=== PATIENT | female | born 1965 | race Caucasian/White ===

== ENCOUNTER 2018-01-16 13:12 | Emergency (ER) | payer OTHER ==
[2018-01-16 13:28] VITALS: BMI 25.7
[2018-01-16] MEDS ORDERED: Lidocaine 1% Inj (20ml) INFIL STA (14:25)
--- NOTE | 2018-01-16 14:25 | RAD ---
PROCEDURE: Left Wrist Radiographs. HISTORY: fall COMPARISON: None. FINDINGS: BONES: Comminuted, dorsally angulated distal radial fracture with equivocal extension to the radiocarpal articulation. Minimally displaced fracture of the ulnar styloid. JOINTS: Unremarkable. SOFT TISSUES: Circumferential wrist soft tissue swelling. OTHER FINDINGS: None. IMPRESSION: Comminuted, dorsally angulated distal radial fracture with equivocal intra-articular extension. Minimally displaced ulnar styloid fracture.
[2018-01-16] MEDS ORDERED: Lidocaine Hydrochloride 5 ML INJ ONE (14:30)
[2018-01-16] MEDS ORDERED: Morphine 4 MG/ML VIAL ONE (14:31)
--- NOTE | 2018-01-16 15:08 | C.PDOC ---
History Of Present Illness 52-year-old female, presents to the emergency department with complaints of pain to left wrist. patient states she fell at home at 10:00 this morning, injuring her left wrist, prompting visit. patient states she took Tylenol at home, before arrival. She notes pain is worse with movement and palpation. Denies numbness/weakness, nausea/vomiting, or any other associated symptoms. No other complaints at this time. Time Seen by Provider: 01/16/18 13:35 Chief Complaint (Nursing): Upper Extremity Problem/Injury History Per: Patient History/Exam Limitations: no limitations Current Symptoms Are (Timing): Still Present Past Medical History Reviewed: Historical Data, Nursing Documentation, Vital Signs Vital Signs: Last Vital Signs Temp 98.6 F 01/16/18 15:21 Pulse 82 01/16/18 15:21 Resp 18 01/16/18 15:21 BP 136/78 01/16/18 15:21 Pulse Ox 99 01/16/18 18:44 - Medical History PMH: Hypercholesterolemia Family History: States: No Known Family Hx - Social History Hx Alcohol Use: No Hx Substance Use: No - Immunization History Hx Tetanus Toxoid Vaccination: No Hx Influenza Vaccination: No Hx Pneumococcal Vaccination: No Review Of Systems Constitutional: Negative for: Fever, Chills Respiratory: Negative for: Shortness of Breath Gastrointestinal: Negative for: Vomiting Musculoskeletal: Positive for: Other (left wrist pain s/p trauma) Physical Exam - Physical Exam Appears: Non-toxic, Other (mod-severe distress) Skin: Normal Color, Warm, Dry, No Rash Head: Atraumatic Eye(s): bilateral: Normal Inspection Nose: Normal Oral Mucosa: Moist Lips: Normal Appearing Neck: Normal ROM Respiratory: No Accessory Muscle Use (no acute respiratory distress) Extremity: Tenderness, Capillary Refill (<2 seconds), Deformity, Swelling (mild) , Other (Left wrist is deformed.) Pulses: Left Radial: Normal, Right Radial: Normal Neurological/Psych: Oriented x3, Normal Speech ED Course And Treatment O2 Sat by Pulse Oximetry: 99 - Other Rad XR WRIST X-Ray: Viewed By Me, Read By Radiologist Interpretation: Accession No. : [id number]. Patient Name / ID : DIA HILLS / [id number]. Exam Date : 01/16/2018 13:52:38 ( Approved ). Study Comment : Sex / Age : F / 52Y. Creator : Ty Dumont MD. Dictator : Ty Dumont MD. Split Leather Mosser : Systems Support Engineer : Ty Dumont MD. Approver2 : Report Date : 01/16/2018 14:23:28. My Comment : . PROCEDURE: Left Wrist Radiographs. . HISTORY: fall. COMPARISON: None. FINDINGS: BONES: Comminuted, dorsally angulated distal radial fracture with equivocal extension to the radiocarpal articulation. Minimally displaced fracture of the ulnar styloid. JOINTS: Unremarkable. SOFT TISSUES: Circumferential wrist soft tissue swelling. OTHER FINDINGS: None. IMPRESSION: Comminuted, dorsally angulated distal radial fracture with equivocal intra-articular extension. Minimally displaced ulnar styloid fracture. POST REDUCTION X-Ray: Viewed By Me, Read By Radiologist Interpretation: Accession No. : [id number]. Patient Name / ID : DIA HILLS / [id number]. Exam Date : 01/16/2018 14:43:36 ( Approved ). Study Comment : Sex / Age : F / 52Y. Creator : Ty Dumont MD. Dictator : Ty Dumont MD. Split Leather Mosser : Systems Support Engineer : Ty Dumont MD. Approver2 : Report Date : 01/16/2018 15:10:37. My Comment : . PROCEDURE: Left Wrist Radiographs. . HISTORY: post reduction. COMPARISON: Left wrist radiographs performed approximately 1 hour prior. FINDINGS: Distal left upper extremity cast is now present, limiting evaluation of fine bony detail. Comminuted, angulated distal radial fracture is redemonstrated with slightly improved, but persistent dorsal angulation. Ulnar styloid fracture is grossly unchanged. IMPRESSION: Findings as above. Medical Decision Making Medical Decision Making: PROCEDURE: REDUCTION Performed by Dr Ortiz (EP) and PA Consent: Informed consent, after discussion of the risks, benefits, and alternatives to the procedure, was obtained. Timeout: A timeout to verify the correct patient, procedure, and site was performed immediately prior to the procedure. Indication: dislocation Location: Left wrist Sedation:Lidocaine 1%, Morphine. Pre-procedure neurovascular status: Distal neurovascular status intact. Post-procedure neurovascular status: Distal neurovascular status remains intact. Confirmation: Post-reduction films confirm reduction. See post-procedure X-Ray interpretation. Post-procedure:Patient tolerated the procedure well with no immediate complications. The reduction site was immobilized with a sugar tongue splint that was applied by ED attending . Case was d/w Hand specialist who will see patient in her office on Saturday, January 20, 2018. Disposition - Disposition Referrals: Danya Munson MD [Staff Provider] - Disposition: HOME/ ROUTINE Disposition Time: 15:02 Condition: STABLE Additional Instructions: Follow up with hand/wrist specialist on Saturday, January 20, 2018. For appointment time call 's office today. Return to ED immediately if feel worse. Prescriptions: oxyCODONE/Acetaminophen [Percocet 5/325 mg Tab] 1 tab PO QID PRN #20 tab PRN Reason: Pain Instructions: Wrist Fracture (DC) Forms: [facility] ([place]) - Clinical Impression Clinical Impression: Wrist fracture - Scribe Statement The provider has reviewed the documentation as recorded by the Scribe (Graham Yates) All medical record entries made by the Scribe were at my direction and personally dictated by me. I have reviewed the chart and agree that the record accurately reflects my personal performance of the history, physical exam, medical decision making, and the department course for this patient. I have also personally directed, reviewed, and agree with the discharge instructions and disposition.
--- NOTE | 2018-01-16 15:12 | RAD ---
PROCEDURE: Left Wrist Radiographs. HISTORY: post reduction COMPARISON: Left wrist radiographs performed approximately 1 hour prior. FINDINGS: Distal left upper extremity cast is now present, limiting evaluation of fine bony detail. Comminuted, angulated distal radial fracture is redemonstrated with slightly improved, but persistent dorsal angulation. Ulnar styloid fracture is grossly unchanged. IMPRESSION: Findings as above.
[2018-01-16 15:22] VITALS: BP 136/78; PULSE 82; RESP 18; TEMP 98.6
[2018-01-16 16:32] VITALS: O2SAT 99
== END 2018-01-16 15:45 | disposition home or self-care (01) ==
LOC: C.ER 13:12
DX: S52.502A Unspecified fracture of the lower end of left radius, initial encounter for closed fracture (principal); W01.0XXA Fall on same level from slipping, tripping and stumbling without subsequent striking against object, initial encounter; Y92.009 Unspecified place in unspecified non-institutional (private) residence as the place of occurrence of the external cause
CPT/HCPCS: 73110; 96372; 99283; J2270